=== PATIENT | female | born 1975 | race Hispanic/Latino ===

== ENCOUNTER 2024-08-13 12:39 | Emergency (ER) | payer BC, OTHER ==
[~2024-08-13] VITALS: Ht 162.6 cm; Wt 77.1 kg
[2024-08-13 13:30] LABS: APPEARANCE,URINE CLOUDY (CLEAR); BILIRUBIN,URINE NEGATIVE (NEGATIVE); COLOR,URINE LIGHT-BROWN (YELLOW); GLUCOSE, URINE (UA) NEGATIVE (NEGATIVE); KETONES,URINE 10 mg/dL (NEGATIVE); LEUKOCYTE ESTERASE ,URINE 25 Leu/uL (NEGATIVE); NITRATE,URINE NEGATIVE (NEGATIVE); OCCULT BLOOD,URINE LARGE (NEGATIVE); PH,URINE 5.5 (5.0-8.0); PROTEIN,URINE 30 mg/dL (NEGATIVE); UROBILINOGEN,URINE 0.2 mg/dL (0.2-1.0)
[2024-08-13 13:33] LABS: ADD UA MICROSCOPIC YES
[2024-08-13 13:35] LABS: BACTERIA,URINE RARE /HPF (None Seen); RBC,URINE TNTC /HPF (0-1); SQUAMOUS EPITHELIAL CELL,UR FEW /HPF (0-2); WBC,URINE 26-50 /HPF (0-1)
[2024-08-13] MEDS: 0.9%NACL 1000ML 1,000 ML IV STA (13:54)
[2024-08-13] MEDS: ondanSETRON 4MG INJ IVP STA (13:54)
[2024-08-13] MEDS: DICYCLOMINE 20MG (10MG/ML) AMP IM STA (13:55)
[2024-08-13 13:58] LABS: BASOPHILS # (AUTO) 0.01 K/uL (0.00-0.20); BASOPHILS % (AUTO) 0.2 % (0.0-5.0); EOSINOPHILS # (AUTO) 0.03 K/uL (0.00-0.70); EOSINOPHILS % (AUTO) 0.5 % (0.0-8.0); HEMATOCRIT 37.9 % (36-48); IMMATURE GRANULOCYTE ABSOLUTE 0.03 K/uL (0-1); LYMPHOCYTES # (AUTO) 1.3 K/uL (1.0-4.8); LYMPHOCYTES % (AUTO) 20.8 % (21.0-51.0); MEAN CORPUSCULAR HEMOGLOBIN 30.1 pg (27.0-33.0); MEAN CORPUSCULAR HGB CONC 32.5 g/dL (32.0-36.0); MEAN CORPUSCULAR VOLUME 92.9 fL (79-99); MONOCYTES # (AUTO) 0.4 K/uL (0.1-1.0); MONOCYTES % (AUTO) 5.6 % (3.0-13.0); NEUTROPHILS # (AUTO) 4.6 K/uL (1.8-7.7); NEUTROPHILS % (AUTO) 72.4 % (40.0-77.0); PLATELET COUNT (AUTO) 231 K/uL (130-400); RED BLOOD CELL COUNT(AUTO) 4.08 MIL/uL (4.00-5.50); RED CELL DISTRIBUTION WIDTH 12.6 % (11.0-15.5); WHITE BLOOD COUNT (AUTO) 6.4 K/uL (4.8-10.8)
[2024-08-13 14:22] LABS: ALBUMIN 4.1 g/dL (3.5-5.0); BILIRUBIN,DIRECT 0.1 mg/dL (0.0-0.3); BILIRUBIN,TOTAL 0.5 mg/dL (0.2-1.0); CREATININE 0.7 mg/dL (0.5-1.0); POTASSIUM 3.8 mmol/L (3.5-5.1); TOTAL PROTEIN, SERUM 7.5 g/dL (6.0-8.3)
[2024-08-13] MEDS ORDERED: IOHEXOL-350 75 ML VIAL IV ONE (14:50)
--- NOTE | 2024-08-13 15:11 | ERN ---
ED Note History of Present Illness Stated Complaint: ABDOMINAL PAIN, NAUSEA, DIARRHEA Chief Complaint: Abdominal Pain Time Seen by MD: 13:16 Time Seen by Midlevel: 13:18 Dictation: 49-YEAR-OLD FEMALE WITH A HISTORY OF LOWER ABDOMINAL PAIN WITH DIARRHEA X2 ONSET AT 11:00 A.M. THIS MORNING. PATIENT STATES SHE HAD BANGURA AND EGG AND TWO CUPS OF COFFEE. DENIES ANY FEVERS, VOMITING, CHEST PAIN OR CHEST DISCOMFORT. Allergies: Coded Allergies: No Known Drug Allergies (Unverified Allergy, Unknown, 08/13/24) Past Medical History Past Medical History: Other Additional Past Medical Hx: ECTOPIC PRENGANCY Surgical History: Other Review of System Dictation CONSTITUTIONAL: NEGATIVE FOR FEVER,CHILLS, AND WEIGHT LOSS EYES: NEGATIVE FOR INJURY, PAIN,REDNESS, AND DISCHARGE ENT: NEGATIVE FOR INJURY,PAIN OR SWELLING CARDIOVASCULAR: NEGATIVE FOR CHEST PAIN, PALPITATIONS, AND EDEMA RESPIRATORY: NEGATIVE FOR SHORTNESS OF BREATH, COUGH, AND WHEEZING, ABDOMEN/GI: LOWER ABDOMINAL PAIN/CRAMPING AND DIARRHEA, NONBLOODY BACK: NEGATIVE FOR INJURY AND PAIN : NEGATIVE FOR INJURY, BLEEDING AND DISCHARGE MS/EXTREMITY: NEGATIVE FOR INJURY AND DEFORMITY SKIN: NEGATIVE FOR RASH, AND DISCOLORATION NEURO: NEGATIVE FOR HEADACHE, WEAKNESS, NUMBNESS, TINGLING, AND SEIZURE PSYCH: NEGATIVE FOR SUICIDE IDEATION, HOMICIDAL IDEATION, AND HALLUCINATIONS Review of Systems: was completed Initial Vital Sign VS Vital Signs Date Time Temp Pulse Resp B/P (MAP) Pulse Ox O2 Delivery O2 Flow Rate FiO2 08/13/24 12:40 98.2 74 14 127/74 100 Room Air 0 08/13/24 14:06 21 Physical Exam Dictation GENERAL: AWAKE, ALERT, NAD HEAD/FACE: NORMOCEPHALIC, ATRAUMATIC EYES: PERRL, EOMI, VISION AT BASELINE ENT: ORAL CAVITY CLEAR, TMS CLEAR, NO SIGNS OF INFECTION NECK: TRACHEA MIDLINE, SUPPLE, NO NUCHAL RIGIDITY CARDIOVASCULAR: RRR, NORMAL S1/S2, NO MRGS, NO JVD RESPIRATORY: CTAB, NO RESPIRATORY DISTRESS, NO RALES OR WHEEZES ABDOMEN: SOFT, NON-TENDER, NON-DISTENDED, NORMAL BOWEL SOUNDS, NO GUARDING OR REBOUND. SKIN: WARM, DRY, NORMAL TURGOR, NO RASH MS/EXTREMITY: PULSES EQUAL, NO CYANOSIS, NEUROVASCULAR INTACT, FROM NEURO: COAX4, GCS 15, STRENGTH 5/5, CN 2-12 INTACT, NORMAL CEREBELLAR EXAM, NORMAL GAIT, PSYCH: NORMAL BEHAVIOR, MOOD, AND AFFECT NORMAL Results (Laboratory/Radiology) Laboratory/Radiology Laboratory Tests Test 08/13/24 13:27 08/13/24 13:49 Urine Color LIGHT-BROWN (YELLOW) Urine Appearance CLOUDY (CLEAR) H Urine pH 5.5 (5.0-8.0) Urine Specific [place] 1.005 (1.001-1.031) Urine Protein 30 mg/dL (NEGATIVE) H Urine Glucose (UA) NEGATIVE mg/dL (NEGATIVE) Urine Ketones 10 mg/dL (NEGATIVE) H Urine Occult Blood LARGE (NEGATIVE) H Urine Nitrate NEGATIVE (NEGATIVE) Urine Bilirubin NEGATIVE mg/dL (NEGATIVE) Urine Urobilinogen 0.2 mg/dL (0.2-1.0) Urine Leukocyte Esterase 25 [place]/uL (NEGATIVE) H Urine RBC TNTC /HPF (0-1) H Urine WBC 26-50 /HPF (0-1) H Urine Squamous Epithelial Cells FEW /HPF (0-2) Urine Bacteria RARE /HPF (None Seen) Urine HCG, Qualitative NEGATIVE (NEGATIVE) White Blood Count 6.4 K/uL (4.8-10.8) Red Blood Count 4.08 MIL/uL (4.00-5.50) Hemoglobin 12.3 g/dL (12.0-16.0) Hematocrit 37.9 % (36-48) Mean Corpuscular Volume 92.9 fL (79-99) Mean Corpuscular Hemoglobin 30.1 pg (27.0-33.0) Mean Corpuscular Hemoglobin Concent 32.5 g/dL (32.0-36.0) Red Cell Distribution Width 12.6 % (11.0-15.5) Platelet Count 231 K/uL (130-400) Mean Platelet Volume 10.7 fL (7.5-10.5) H Immature Granulocyte % (Auto) 0.5 % (0-1) Neutrophils (%) (Auto) 72.4 % (40.0-77.0) Lymphocytes (%) (Auto) 20.8 % (21.0-51.0) L Monocytes (%) (Auto) 5.6 % (3.0-13.0) Eosinophils (%) (Auto) 0.5 % (0.0-8.0) Basophils (%) (Auto) 0.2 % (0.0-5.0) Neutrophils # (Auto) 4.6 K/uL (1.8-7.7) Lymphocytes # (Auto) 1.3 K/uL (1.0-4.8) Monocytes # (Auto) 0.4 K/uL (0.1-1.0) Eosinophils # (Auto) 0.03 K/uL (0.00-0.70) Basophils # (Auto) 0.01 K/uL (0.00-0.20) Absolute Immature Granulocyte (auto 0.03 K/uL (0-1) Nucleated Red Blood Cells 0.0 % (0.0-0.19) Sodium Level 139 mmol/L (136-145) Potassium Level 3.8 mmol/L (3.5-5.1) Chloride Level 102 mmol/L (101-111) Carbon Dioxide Level 29 mmol/L (21-32) Blood Urea Nitrogen 12 mg/dL (7-18) Creatinine 0.7 mg/dL (0.5-1.0) Glomerular Filtration Rate Calc 105 mL/min (>90) Random Glucose 88 mg/dL (70-105) Total Calcium 8.5 mg/dL (8.5-10.1) Total Bilirubin 0.5 mg/dL (0.2-1.0) Direct Bilirubin 0.1 mg/dL (0.0-0.3) Aspartate Amino Transf (AST/SGOT) 18 U/L (10-37) Alanine Aminotransferase (ALT/SGPT) 39 U/L (12-78) Alkaline Phosphatase 68 U/L (50-136) Total Protein 7.5 g/dL (6.0-8.3) Albumin 4.1 g/dL (3.5-5.0) Lipase 26 U/L (16-77) Labs Reviewed?: Yes CT Scan Comment: [place] [id number] [address] IMAGING REPORT Signed PATIENT: OFELIA JARRETT MR#: [id number] : 974 SEX: F AGE: 49 LOCATION: [facility] ORDER [id number] STATUS: REG ER REPORT#: [id number] SERVICE [id number] REASON: abdominal pain ORDERING PHYSICIAN: BRANDT EARL NP PROCEDURE: ABD PEL W - CT ABDOMEN/PELVIS W/CONTRAST CT ABDOMEN/PELVIS W/CONTRAST HISTORY: abdominal pain TECHNIQUE: CT ABDOMEN/PELVIS W/CONTRAST Omnipaque contrast was used. Oral contrast was not given. Coronal and sagittal reformats were obtained. CT was performed with one or more of the following dose reduction techniques: Automated exposure control, adjustment of the mA and/or kV according to the patient's size, or use of the iterative reconstruction technique. Comparison: 11/22/2013 FINDINGS: No pulmonary consolidation or pleural effusion is seen. There is hepatic steatosis. No calcified gallstone is seen. Small scattered hypodensities are seen in the liver, too small to characterize. Consider follow-up ultrasound in 6 months. The spleen, pancreas, and adrenal glands are within normal limits. No hydronephrosis. The urinary bladder is partially distended. Reproductive organs are grossly within normal limits for patient's age. Fluid-filled loops of small bowel and colon suggesting enterocolitis in the proper clinical setting. Areas of wall thickening is seen in the right colon. No bowel obstruction is seen. Appendix is normal in caliber. Visualized aorta is normal in caliber. No acute osseous findings. IMPRESSION: Fluid-filled loops of small bowel and colon suggesting enterocolitis in the proper clinical setting. Areas of wall thickening is seen in the right colon. No bowel obstruction is seen. ED Course ED Course Orders Procedure Category Date Status Time Cbc With Differential LAB 08/13/24 Complete 13:23 Basic Metabolic Panel LAB 08/13/24 Complete 13:23 Hepatic Function Panel LAB 08/13/24 Complete 13:23 Lipase LAB 08/13/24 Complete 13:23 Urinalysis Profile LAB 08/13/24 Complete 13:23 0.9%Nacl 1000ml (Ns PHA 08/13/24 Complete 1000ml) 13:23 Ondansetron 4mg Inj PHA 08/13/24 Complete (Zofran 4mg Inj) 13:23 Dicyclomine Hcl PHA 08/13/24 Complete (Bentyl 20mg Inj) 13:23 Culture Urine IRMA 08/13/24 In Process 13:36 ,Urine Test LAB 08/13/24 Complete 14:39 Ct Abdomen/Pelvis CT 08/13/24 Resulted W/Contrast 14:39 Morphine 2mg Syg PHA 08/13/24 Complete (Morphine 2mg Syg) 14:39 Iohexol (Omnipaque) PHA 08/13/24 Complete 14:50 Current Medications Medications (Trade) Dose Ordered Sig/Maria Dolores Route PRN Reason Start Time Stop Time Status Last Admin Dose Admin Dicyclomine HCl (Bentyl 20mg Inj) 20 mg ONCE STAT IM 08/13/24 13:23 08/13/24 13:26 DC 08/13/24 13:55 Iohexol (Omnipaque) 75 ml STK-MED ONCE IV 08/13/24 14:50 08/13/24 14:50 DC Morphine Sulfate (morPHINE 2MG SYG) 2 mg ONCE STAT IVP 08/13/24 14:39 08/13/24 14:42 DC Ondansetron HCl (zoFRAN 4MG INJ) 4 mg ONCE STAT IVP 08/13/24 13:23 08/13/24 13:26 DC 08/13/24 13:54 Sodium Chloride 1,000 ml @ 1,000 mls/hr Q1H STAT IV 08/13/24 13:23 08/13/24 14:22 DC 08/13/24 13:54 Vital Signs Date Time Temp Pulse Resp B/P (MAP) Pulse Ox O2 Delivery O2 Flow Rate FiO2 08/13/24 15:32 98.2 70 18 128/72 96 Room Air* 0 21 08/13/24 14:06 98.1 60 16 128/70 98 Room Air* 0 21 08/13/24 12:40 98.2 74 14 127/74 100 Room Air 0 Medical Decision Making MDM MDM: 49-YEAR-OLD FEMALE WITH A HISTORY OF LOWER ABDOMINAL PAIN WITH DIARRHEA X2 ONSET AT 11:00 A.M. THIS MORNING. PATIENT STATES SHE HAD BANGURA AND EGG AND TWO CUPS OF COFFEE. DENIES ANY FEVERS, VOMITING, CHEST PAIN OR CHEST DISCOMFORT. BLOOD WORK IS UNREMARKABLE. CT SCAN OF THE ABDOMEN SHOWS ENTEROCOLITIS. PATIENT GIVEN FLUIDS AND PAIN MEDICATION. AFTER MEDICATION PATIENT FEELS BETTER. DISCUSSED WITH THE PATIENT FINDINGS. EDUCATED FOLLOW UP WITH PCP IN 1- 2 DAYS AND TO RETURN TO THE HOSPITAL IF SYMPTOMS WORSEN. PATIENT VERBALIZED UNDERSTANDING, ANSWERED ALL QUESTIONS. DIFFERENTIAL DIAGNOSIS: GASTROENTERITIS, PANCREATITIS, CHOLECYSTITIS RATIONALE: TESTS CONSIDERED AND ORDERED SECONDARY TO SHARED DECISION MAKING INCLUDE: PREVIOUS OUTSIDE RECORDS REVIEWED: OLD ER VISITS. RISK OF COMPLICATION AND/OR MORBIDITY OR MORTALITY OF PATIENT MANAGEMENT: NONE MEDICATIONS-PER MEDICATION RECONCILIATION NEED FOR HOSPITALIZATION: PATIENT DOES NOT MEET CRITERIA FOR HOSPITALIZATION. NEED FOR EMERGENCY MAJOR/MINOR SURGERY: NO THERE ARE NO SOCIAL CONCERNS WITH THIS PATIENT. PRESCRIPTION DRUG MANAGEMENT PRESCRIPTIONS WILL INCLUDE SYMPTOMATIC CARE PATIENT'S PRIOR EXTERNAL MEDICAL RECORDS FROM OTHER ER VISITS WERE REVIEWED BY ME INDICATED. PRIOR TESTING AND RESULTS FROM PREVIOUS VISITS WERE REVIEWED. PRIOR TESTS WERE TAKEN INTO ACCOUNT WITH MEDICAL DECISION MAKING AND RESOURCE UTILIZATION, INDEPENDENT HISTORIAN/HISTORIANS WERE USED TO OBTAIN COMPLETE MEDICAL HISTORY. I INDEPENDENTLY INTERPRETED THE TEST THAT WERE PERFORMED, RESULTS WERE REVIEWED BY ME AND CONSIDERED FINDINGS ON RADIOLOGY IF ORDERED. MEDICAL MANAGEMENT AND EXAMINATION INTERPRETATION DISCUSSIONS WERE HAD BY ME WITH OTHER QUALIFIED HEALTHCARE PROFESSIONALS INDICATED FOR THE PATIENT'S CARE. DX & DISP Disposition: Discharge Departure Impression: Primary Impression: Hepatic steatosis Additional Impression: Enterocolitis Condition: Stable Scripts Dicyclomine HCl (Bentyl) 20 Mg Tab 1 TAB PO BID PRN for PAIN for 15 Days, #60 TAB 0 Refills Prov: BRANDT EARL PRODUCTION HARDENER 08/13/24 Additional Instructions: TAKE SUPPORTIVE TREATMENT [id number]. STAY HYDRATED. RETURN TO THE [facility] IF YOU DEVELOP ANY FEVERS, UNABLE TO KEEP ANY FOOD DOWN, BLOODY DIARRHEA OTHERWISE FOLLOW UP WITH YOUR PRIMARY DOCTOR IN 1-2 DAYS. Referrals: SHANICE JEFFRIES MD (PCP) Time of Disposition: 15:53 I have reviewed the case, and I agree with, Diagnosis and Plan BRANDT EARL NP August 13, 2024 15:11
--- NOTE | 2024-08-13 15:44 | HMCIMG ---
CT ABDOMEN/PELVIS W/CONTRAST HISTORY: abdominal pain TECHNIQUE: CT ABDOMEN/PELVIS W/CONTRAST Omnipaque contrast was used. Oral contrast was not given. Coronal and sagittal reformats were obtained. CT was performed with one or more of the following dose reduction techniques: Automated exposure control, adjustment of the mA and/or kV according to the patient's size, or use of the iterative reconstruction technique. Comparison: 11/22/2013 FINDINGS: No pulmonary consolidation or pleural effusion is seen. There is hepatic steatosis. No calcified gallstone is seen. Small scattered hypodensities are seen in the liver, too small to characterize. Consider follow-up ultrasound in 6 months. The spleen, pancreas, and adrenal glands are within normal limits. No hydronephrosis. The urinary bladder is partially distended. Reproductive organs are grossly within normal limits for patient's age. Fluid-filled loops of small bowel and colon suggesting enterocolitis in the proper clinical setting. Areas of wall thickening is seen in the right colon. No bowel obstruction is seen. Appendix is normal in caliber. Visualized aorta is normal in caliber. No acute osseous findings. IMPRESSION: Fluid-filled loops of small bowel and colon suggesting enterocolitis in the proper clinical setting. Areas of wall thickening is seen in the right colon. No bowel obstruction is seen.
[2024-08-13] MEDS ORDERED: DICY20TA2 PO (16:13)
[2024-08-13 16:18] VITALS: BP 128/86; PULSE 74; RESP 18; TEMP 98.1; O2SAT 98
--- NOTE | 2024-08-13 16:23 | NUR ---
pt refused pain meds, provider aware. pt did not want morphine, wanted to wait for ct results.
[2024-08-13] MEDS: morPHINE 2 MG SYG IVP STA (16:24)
== END 2024-08-13 16:25 | disposition home or self-care (01) ==
LOC: EDH 12:39
DX: K76.0 Fatty (change of) liver, not elsewhere classified (principal); K52.9 Noninfective gastroenteritis and colitis, unspecified
CPT/HCPCS: 99284; 74177; 96374; 96361; 80076; 80048; 83690; 85025; 87086; 81001; 81025; 36415; 96372; J7030; J2405; J0500; Q9967